=== PATIENT | female | born 1980 | race Caucasian/White ===

== ENCOUNTER 2025-05-09 11:05 | Emergency (ER) | payer SELFPAY ==
[2025-05-09 11:12] VITALS: BP 127/92; PULSE 88; TEMP 36.6; O2SAT 95; BMI 42.1
--- NOTE | 2025-05-09 11:22 | CT_ITS ---
The [address] [address] Patient Name: MO GARCIA MRN: [id number] date: 1980 Sex: F Assigned Patient Location: ER Current Patient Location: ER Accession/Order Number: [id number] Exam Date: 05/09/2025 12:12 Report Date: 05/09/2025 12:38 At the request of: JAYDA MCKEON MD Procedure: CT abdomen pelvis w con CT Abdomen and Pelvis withcontrast TECHNIQUE: Axial imaging with 2-D reconstruction. The CT exam was performed using one or more the following dose reduction techniques: Automated exposure control, adjustment of the MA and/or Kv according to patient size, or use of the iterative reconstruction technique. COMPARISON: None History: Lower abdominal pain. LIMITATIONS: None LOWER THORAX Unremarkable LIVER: Tiny hepatic cysts. GALLBLADDER: Cholecystectomy clips identified. BILE DUCTS: No dilatation SPLEEN: Unremarkable PANCREAS: Unremarkable ADRENAL GLANDS: Unremarkable KIDNEYS:Tiny left renal cyst. No nephrolithiasis or obstructive uropathy. AORTA: No abdominal aortic aneurysm identified. RETROPERITONEUM: No significant retroperitoneal abnormalities identified. MESENTERY:Unremarkable STOMACH:Unremarkable SMALL BOWEL: The small bowel loops are nondistended. APPENDIX: The appendix is normal. COLON: Surgical clips and cecal region. Nondistended. Scattered distal diverticulosis. URINARY BLADDER: Urinary bladder is unremarkable. REPRODUCTIVE SYSTEM: The uterus is absent. PNEUMOPERITONEUM: None PERITONEAL FLUID:Trace low-density pelvic fluid. Likely physiologic. BONY STRUCTURES: Degenerative change ABDOMINAL WALL: Unremarkable CT/CT abdomen pelvis w con IMPRESSION: No acute findings. No focal inflammatory changes. Impression dictated by: Joe Moore M.D. 05/09/2025 12:38 PM Dictation [facility] Electron[facility] authenticated by: [id number] Y Date: 05/09/2025 12:38
--- NOTE | 2025-05-09 11:23 | ED_ITS ---
HPI HPI - General Adult General Chief complaint: Abdominal Pain Stated complaint: ABDOMINAL PAIN Time Seen by Provider: 05/09/25 11:18 Mode of arrival: walk-in Limitations: no limitations History of Present Illness HPI narrative: 44-year-old female presents for abdominal pain. She has had it for 3 days and it is across her lower abdomen. She states in February of this year she was at another hospital and had a CAT scan and they told her that she had a stone in her appendix. No fever or vomiting or injury. She ate some Cheetos today. Related Data Home Medications ?Medication ?Instructions ?Recorded ?Confirmed atorvastatin 40 mg tablet 40 mg PO DAILY 05/09/2504/21 lisinopril 20 1 tab PO DAILY 05/09/2504/21 mg-hydrochlorothiazide 25 mg tablet Allergies Allergy/AdvReac Type Severity Reaction Status Date / Time hydromorphone (From Dilaudid) Allergy Intermediate Vomiting Verified 05/09/25 11:12 Opioid HPI Opioid Management Most Recent Opioid Data: Last Pain Scale 8 Today, 11:18 Review of Systems ROS Narrative A ten point review of systems is negative except as noted above. PFSH PFSH Social History Little interest or pleasure in doing things: not at all Feeling down, depressed, or hopeless: not at all Exam Narrative Exam Narrative: Nurses note and vital signs reviewed and patient is not hypoxic. General: The patient appears uncomfortable Skin: Warm, dry, no pallor noted. There is no rash noted. Head: Normocephalic, atraumatic Eye: Normal conjunctiva, no drainage Ears, Nose, Mouth, and Throat: oral mucosa is moist. Nares patent. Cardiovascular: Regular Rate and Rhythm Respiratory: Patient is in no distress, no accessory muscle use, lungs are clear to auscultation, no wheezing, rales or rhonchi Back: non-tender GI: Soft and diffusely tender Musculoskeletal: The patient has no evidence of calf tenderness, no pitting edema, symmetrical pulses noted bilaterally Neurological: A&O, normal speech Psychiatric: Cooperative Constitutional Vital Signs, click to edit/add: Last Vital Signs Temp 97.8 F 05/09/25 11:12 Pulse 88 05/09/25 11:12 Resp 16 05/09/25 11:12 BP 127/92 H 05/09/25 11:12 Pulse Ox 95 05/09/25 11:12 O2 Del Method Room Air 05/09/25 11:12 Course Vital Signs Vital signs: Vital Signs Temperature 97.8 F 05/09/25 11:12 Pulse Rate 88 05/09/25 11:12 Respiratory Rate 16 05/09/25 11:12 Blood Pressure 127/92 H 05/09/25 11:12 Pulse Oximetry 95 05/09/25 11:12 Oxygen Delivery Method Room Air 05/09/25 11:12 Temperature 97.8 F 05/09/25 11:12 Pulse Rate 88 05/09/25 11:12 Respiratory Rate 16 05/09/25 11:12 Blood Pressure 127/92 H 05/09/25 11:12 Pulse Oximetry 95 05/09/25 11:12 Oxygen Delivery Method Room Air 05/09/25 11:12 Medical Decision Making MDM Narrative Medical decision making narrative: Her workup including CT of the abdomen is negative. Findings are discussed with the patient and she will be discharged home. Treatment diagnosis and follow-up were discussed with the patient. Differential Diagnosis Differential Diagnosis: Appendicitis, UTI, constipation Lab Data Lab results reviewed: Yes I reviewed the patient's lab results Labs: Lab Results 05/09/25 05/09/25 Range/Units 11:42 12:34 WBC 6.2 (4.0-11.0) 10^3/uL RBC 4.84 (4.20-5.40) 10^6/uL Hgb 14.0 (12.0-16.0) g/dL Hct 40.4 (36.0-48.0) % MCV 83.5 (81.0-99.0) fL MCH 28.9 (26.7-34.0) pg MCHC 34.7 (29.9-35.2) g/dL RDW 13.4 (11.0-15.0) % Plt Count 257 (150-450) 10^3/uL MPV 10.4 (9.5-13.5) fL Neut % (Auto) 63.0 (43.0-75.0) % Lymph % (Auto) 27.9 (20.5-60.0) % [place] % (Auto) 6.5 (1.7-12.0) % Eos % (Auto) 2.1 (0.9-7.0) % Baso % (Auto) 0.3 (0.2-2.0) % Neut # (Auto) 3.9 (1.4-6.5) 10^3/uL Lymph # (Auto) 1.7 (1.2-3.8) 10^3/uL [place] # (Auto) 0.4 (0.3-0.8) 10^3/uL Eos # (Auto) 0.1 (0.0-0.7) 10^3/uL Baso # (Auto) 0.0 (0.0-0.1) 10^3/uL Abs Immat Gran (auto) 0.01 (0.00-0.03) 10^3/uL Imm/Tot Granulo (auto) 0.2 (0.0-0.5) % Sodium 139 (136-145) mmol/L Potassium 3.5 (3.5-5.1) mmol/L Chloride 106 (98-107) mmol/L Carbon Dioxide 23.0 (21.0-32.0) mmol/L Anion Gap 13.5 BUN 14.0 (7.0-18.0) mg/dL Creatinine 0.83 (0.55-1.02) mg/dL Est GFR ( Amer) >60 (>=60 mL/min/1.73m^2) Est GFR (Non-Af Amer) >60 (>=60 mL/min/1.73m^2) BUN/Creatinine Ratio 16.9 Glucose 107 H (74-106) mg/dL Calcium 8.7 (8.5-10.1) mg/dL Total Bilirubin 0.8 (0.2-1.0) mg/dL Direct Bilirubin 0.2 (0.0-0.2) mg/dL AST 17 (15-37) U/L ALT 49 (14-59) U/L Alkaline Phosphatase 82 (46-116) U/L Total Protein 7.0 (6.4-8.2) g/dL Albumin 3.5 (3.4-5.0) g/dL Globulin 3.5 g/dL Albumin/Globulin Ratio 1.0 Amylase 50 (25-115) U/L Lipase 35.0 (16.0-77.0) U/L Urine Color Lt. yellow (YELLOW) Urine Clarity Clear (CLEAR) Urine pH 5.5 (5.0-9.0) Ur Specific [place] <=1.005 A (1.005-1.025) Urine Protein Negative (NEG/TRACE) mg/dL Urine Glucose (UA) Negative (NEGATIVE) mg/dL Urine Ketones Negative (NEGATIVE) mg/dL Urine Occult Blood Negative (NEGATIVE) Urine Nitrite Negative (NEGATIVE) Urine Bilirubin Negative (NEGATIVE) Urine Urobilinogen 0.2 (0.2-1.0) EU/dL Ur Leukocyte Esterase Negative (NEGATIVE) Urine RBC None seen (0-2) #/HPF Urine WBC None seen (NONE SEEN) #/HPF Ur Squamous Epith Cells Rare (NONE/RARE) #/LPF Urine Crystals None seen (None Seen) #/HPF Urine Bacteria Trace A (NONE SEEN) #/HPF Urine Casts None seen (NONE SEEN) #/LPF Urine Mucus None seen (NONE SEEN) Ur Culture Indicated? No Imaging Data CT scan - abdomen: Radiologist's impression: ITS Impressions Abdomen/Pelvis CT 05/09/25 11:22 IMPRESSION: No acute findings. No focal inflammatory changes. Impression dictated by: Joe Moore M.D. 05/09/2025 12:38 PM Dictation Location: [place] [address] Electronically authenticated by: [id number] Y Date: 05/09/2025 12:38 Discharge Plan Discharge Chief Complaint: Abdominal Pain Clinical Impression: Abdominal pain Patient Disposition: Home, Self-Care Time of Disposition Decision: 13:16 Condition: Good Mode of Transportation: Private Vehicle Prescriptions / Home Meds: No Action lisinopril-hydrochlorothiazide 20-25 mg tablet 1 tab PO DAILY atorvastatin 40 mg tablet 40 mg PO DAILY Print Language: Spanish Instructions: Abdominal Pain (ED) Referrals: Lucius Ha NP [Primary Care Provider] - 1 week
[2025-05-09] MEDS: 0.9 % SODIUM CHLORIDE 1,000 ML 1000 ML IV (11:46)
[2025-05-09 11:58] LABS: Hematocrit 40.4 % (36.0-48.0); Hemoglobin 14.0 g/dL (12.0-16.0); Immature Granulocytes Abs Auto 0.01 10^3/uL (0.00-0.03); Immature Granulocytes Pct Auto 0.2 % (0.0-0.5); Lymphocytes Absolute Auto 1.7 10^3/uL (1.2-3.8); Mean Corpuscular HGB Conc 34.7 g/dL (29.9-35.2); Mean Corpuscular Hemoglobin 28.9 pg (26.7-34.0); Mean Corpuscular Volume 83.5 fL (81.0-99.0); Platelet Count 257 10^3/uL (150-450); Red Blood Count 4.84 10^6/uL (4.20-5.40); White Blood Count 6.2 10^3/uL (4.0-11.0)
[2025-05-09] MEDS: MORPHINE SULFATE 4 MG/ML VIAL IV (11:58)
[2025-05-09 12:10] LABS: Anion Gap 13.5; Blood Urea Nitrogen 14.0 mg/dL (7.0-18.0); Calcium 8.7 mg/dL (8.5-10.1); Carbon Dioxide 23.0 mmol/L (21.0-32.0); Chloride 106 mmol/L (98-107); Estimated GFR (African America >60 (>=60 mL/min/1.73m^2); Estimated GFR (Non-African Ame >60 (>=60 mL/min/1.73m^2); Glucose 107 mg/dL (74-106); Potassium 3.5 mmol/L (3.5-5.1); Sodium 139 mmol/L (136-145)
[2025-05-09 12:22] LABS: Alanine Aminotransferase 49 U/L (14-59); Albumin Globulin Ratio 1.0; Albumin Level 3.5 g/dL (3.4-5.0); Alkaline Phosphatase 82 U/L (46-116); Amylase 50 U/L (25-115); Aspartate Amino Transferase 17 U/L (15-37); Globulin 3.5 g/dL; Lipase 35.0 U/L (16.0-77.0); Total Protein 7.0 g/dL (6.4-8.2)
[2025-05-09 12:47] LABS: Glucose Urine UA NEGATIVE (NEGATIVE)
[2025-05-09 13:13] LABS: Cast Seen? NONE SEEN #/LPF (NONE SEEN); Crystals Seen? None Seen #/HPF (None Seen); Urine Culture Indicated NO
== END 2025-05-09 13:32 | disposition home or self-care (01) ==
PROVIDERS: Emergency Provider Emergency Medicine; Family Provider Family Medicine; PCP Nurse Practitioner Family
DX: R10.9 Unspecified abdominal pain (principal); Z90.49 Acquired absence of other specified parts of digestive tract; Z90.710 Acquired absence of both cervix and uterus
CPT/HCPCS: 36415; 74177; 80048; 80076; 81001; 82150; 83690; 85025; 96374; 96375; 99285; J2270; J2405; Q9967